=== PATIENT | female | born 1950 | race Caucasian/White ===

== ENCOUNTER → 2017-07-20 | Outpatient (CLI) | payer MEDICARE, BC ==
[~2017-07-20] MED LIST: CELEXA40 MG PO; LEXAPRO; NEXIUM 40MG40 MG PO; NEXIUM PO; NORCO 325 MG-7.1 TAB PO; PERCOCET 325 MG1 TA2 PO; ULTRAM 50MG TAB50 MG PO; ZESTRIL 10MG10 MG PO
== END ==
LOC: MC.RAD 09:58
DX: Z12.31 Encounter for screening mammogram for malignant neoplasm of breast (principal); Z98.82 Breast implant status

== ENCOUNTER → 2022-04-25 | Outpatient (CLI) | payer MEDICARE, BC | LOC: MC.RAD 06:57 | DX: Z12.31 Encounter for screening mammogram for malignant neoplasm of breast (principal) ==

== ENCOUNTER → 2024-08-25 | Outpatient (CLI) | payer MEDICARE, BC | LOC: MC.RAD 09:00 | DX: Z12.31 Encounter for screening mammogram for malignant neoplasm of breast (principal) ==